=== PATIENT | male | born 1955 | race American Indian/Alaskan Native ===

== ENCOUNTER 2022-06-13 05:57 | Observation (INO) | payer MEDICARE ==
[2022-06-10 10:10] LABS: Hematocrit 41.2 % (35.5-45.6); Hemoglobin 13.8 gm/dl (11.8-15.2); Mean Corpuscular HGB Conc 34 % (32-34); Mean Corpuscular Volume 88 fl (84-94); Platelet Count 217 K/mm3 (140-440); Red Blood Count 4.71 M/mm3 (3.65-5.03); Red Cell Distribution Width 13.1 % (13.2-15.2)
[2022-06-10 10:25] LABS: Alanine Aminotransferase 14 units/L (7-56); Albumin 4.1 g/dL (3.9-5); BUN/Creatinine Ratio 18; Blood Urea Nitrogen 14 mg/dL (9-20); Hemolysis Index 2
[2022-06-13] MEDS ORDERED: LACTATED RINGERS 1,000 ML ONE ×2 (06:25→10:03)
[2022-06-13] MEDS ORDERED: SODIUM CHLORIDE P/F VIAL 10 ML 10 ML ONE (07:17)
[2022-06-13] MEDS ORDERED: BUPIVACAINE/PF (0.5%) 5 MG/1 ML 30 ML VIAL INFILTRATI ONE (07:17)
[2022-06-13] MEDS ORDERED: NEOMY 40 MG/POLYMYXIN B 200,000 UNITS/ML (GU) AMPULE IR ONE ×2 (07:18→09:00)
[2022-06-13] MEDS ORDERED: rifAMPin 600 MG VIAL ONE (07:18)
[2022-06-13] MEDS ORDERED: SODIUM CHLORIDE 0.9% 500 ML 500 ML ONE (07:18)
--- NOTE | 2022-06-13 07:20 | Anesthesia Consultation ---
Anesthesia Consult and Med Hx Date of service: 06/13/22 - Airway Anesthetic Teeth Evaluation: Poor (some missing teeth in the bottom), Caps (#27 garcia cap), Dentures (upper) ROM Head & Neck: Adequate Mental/Hyoid Distance: Adequate Mallampati Class: Class II Intubation Access Assessment: Probably Good - Pre-Operative Health Status ASA Pre-Surgery Classification: ASA2 Proposed Anesthetic Plan: General - Central Nervous System Hx Psychiatric Problems: No - Endocrine Hx Non-Insulin Dependent Diabetes: No (no meds, BS elevated on DOS) - Other Systems Hx Cancer: No Hx Obesity: Yes (BMI 34.4)
[2022-06-13] MEDS ORDERED: INSULIN REGULAR, HUMAN 100 UNITS/1 ML IV NR (07:21)
--- NOTE | 2022-06-13 07:24 | Anesthesia Day of Surgery ---
Anesthesia Day of Surgery - Day of Surgery Patient Examined: Yes Patient H&P Reviewed: Yes Patient is NPO: Yes
[2022-06-13] MEDS ORDERED: VANCOMYCIN/NS 1 GM/250 ML 1 GM/250 ML BAG IV NR (07:39)
[2022-06-13] MEDS ORDERED: ONDANSETRON 4 MG/2 ML INJ ONE (07:49)
[2022-06-13] MEDS ORDERED: LIDOCAINE MPF (2%) 20 MG/1 ML VIAL 5 ML ONE (07:49)
[2022-06-13] MEDS ORDERED: HYDROmorphone 1 MG/1 ML INJ ONE (07:49)
[2022-06-13] MEDS ORDERED: propofoL 200 MG/20 ML VIAL IV ONE (07:50)
[2022-06-13] MEDS ORDERED: GABAPENTIN 500 MG/10 ML ORAL LIQD PO NR (08:00)
[2022-06-13] MEDS ORDERED: MIDAZOLAM 2 MG/2 ML INJ IV NR (08:00)
[2022-06-13] MEDS ORDERED: CELECOXIB 200 MG CAP PO NR (08:00)
[2022-06-13] MEDS ORDERED: LACTATED RINGERS 1,000 ML IV SCH (08:00)
[2022-06-13] MEDS ORDERED: GENTAMICIN/NS 80 MG/100 ML 100 ML IV ONE (08:00)
[2022-06-13] MEDS ORDERED: VANCOMYCIN 1,500 MG in SODIUM CHLORIDE 0.9% 500 ML 500 ML IV ONE (08:00)
[2022-06-13] MEDS ORDERED: FAMOTIDINE 20 MG/2 ML INJ IV NR (08:00)
[2022-06-13] MEDS ORDERED: ONDANSETRON 4 MG/2 ML INJ IV PRN ×3 (08:31→09:50)
[2022-06-13] MEDS ORDERED: ACETAMINOPHEN 325 MG TAB PO PRN ×3 (08:31→09:50)
[2022-06-13] MEDS ORDERED: rifAMPin 600 MG VIAL IV ONE (09:00)
[2022-06-13] MEDS ORDERED: SODIUM CHLORIDE 0.9% 500 ML IVPB IRRIGATION ONE (09:00)
[2022-06-13] MEDS ORDERED: SODIUM CHLORIDE 0.9% IRR 1,500 ML BOTTLE IR ONE (09:00)
[2022-06-13] MEDS ORDERED: SODIUM CHLORIDE 0.9% P/F 10 ML VIAL INFILTRATI ONE (09:00)
[2022-06-13] MEDS ORDERED: GENTAMICIN 40 MG/ML VIAL 2 ML IV ONE (09:00)
[2022-06-13] MEDS ORDERED: HYDROcodone/ACETAMINOPHEN 5-325 MG TAB PO PRN (09:30)
[2022-06-13] MEDS ORDERED: MORPHINE 4 MG/1 ML INJ IV PRN (09:30)
[2022-06-13] MEDS ORDERED: PHENYLEPHRINE/NS 1,000 MCG/10 ML SYRINGE (OR USE) IV ONE (09:41)
[2022-06-13] MEDS ORDERED: NALOXONE 0.4 MG/1 ML INJ IV PRN (09:50)
--- NOTE | 2022-06-13 09:50 | Short Stay Summary ---
Short Stay Documentation Date of service: 06/13/22 - History H&P: obtained from office - Allergies and Medications Current Medications: Allergies No Known Allergies Allergy (Unverified 06/08/22 17:15) Home Medications Medication Instructions Recorded Confirmed Last Taken Type No Known Home Medications [No 06/08/22 06/08/22 Unknown History Reported Home Medications] Active Medications Acetaminophen (Acetaminophen 325 Mg Tab) 650 mg PO Q4H PRN PRN Reason: Pain MILD(1-3)/Fever >100.5/MONTANEZ Hydrocodone Bitart/Acetaminophen (Hydrocodone/Acetaminophen 5-325 Mg Tab) 2 each PO Q6H PRN PRN Reason: Pain, Moderate (4-6) Celecoxib (Celecoxib 200 Mg Cap) 200 mg PO PREOP NR Stop: 06/13/22 13:00 Last Admin: 06/13/22 07:30 Dose: 200 mg Famotidine (Famotidine 20 Mg/2 Ml Inj) 20 mg IV PREOP NR Stop: 06/13/22 10:00 Last Admin: 06/13/22 07:30 Dose: 20 mg Gabapentin (Gabapentin 500 Mg/10 Ml Oral Liqd) 150 mg PO PREOP NR Stop: 06/13/22 10:00 Last Admin: 06/13/22 07:30 Dose: 150 mg Lactated Ringer's (Lactated Ringers) 1,000 mls @ 100 mls/hr IV DIRECT ALEX Last Admin: 06/13/22 06:35 Dose: 100 mls/hr Insulin Human Regular (Insulin Regular, Human 100 Units/1 Ml) 8 units IV ONCE NR Stop: 06/13/22 10:00 Last Admin: 06/13/22 07:30 Dose: 8 units Midazolam HCl (Midazolam 2 Mg/2 Ml Inj) 2 mg IV PREOP NR Stop: 06/13/22 23:59 Last Admin: 06/13/22 08:05 Dose: 2 mg Morphine Sulfate (Morphine 4 Mg/1 Ml Inj) 4 mg IV Q4H PRN PRN Reason: Pain , Severe (7-10) Ondansetron HCl (Ondansetron 4 Mg/2 Ml Inj) 4 mg IV Q8H PRN PRN Reason: Nausea And Vomiting Sodium Chloride (Sodium Chloride 0.9% 10 Ml Flush Syringe) 10 ml IV BID ALEX Sodium Chloride (Sodium Chloride 0.9% 10 Ml Flush Syringe) 10 ml IV PRN PRN PRN Reason: LINE FLUSH Stop: 06/18/22 08:32 - Brief post op/procedure progress note Date of procedure: 06/13/22 Pre-op diagnosis: impotence Post-op diagnosis: other (redundant scrotal skin) Procedure: ipp, scrotaplasty Anesthesia: GETA Surgeon: GENE ANAYA Condition: stable - Hospital course Hospital course: pt has scripts DC [facility] / DC HOME PT HAS SCRIPTS - Disposition Condition at discharge: Stable Disposition: 01 HOME / SELF CARE / HOMELESS Short Stay Discharge Plan Follow up with: PRIMARY CARE, [Primary Care Provider] - 7 Days Prescriptions: metFORMIN [Glucophage] 500 mg PO BID #[id number]
--- NOTE | 2022-06-13 10:41 | Post Anesthesia Evaluation ---
- Post Anesthesia Evaluation Patient Participated: Yes Airway Patent: Yes Stable Respiratory Function: Yes Nausea/Vomiting: No Temp > 96.8F: Yes Pain Manageable: Yes Adequeate Hydration: Yes Anesthesia Complications: No
--- NOTE | 2022-06-13 11:04 | Operative Report ---
DATE OF SURGERY: 06/13/2022 PREOPERATIVE DIAGNOSIS: Erectile dysfunction. POSTOPERATIVE DIAGNOSIS: Erectile dysfunction. PROCEDURE: Insertion of inflatable penile prosthesis (Coloplast Titan 24 cm), injection of corporal body with pharmacologic agent and scrotoplasty. SURGEON: Fredis Marin MD MELTING OPERATOR: Lina Tucker. ANESTHESIA: General. ESTIMATED BLOOD LOSS: Minimal. FLUIDS: Crystalloid. COMPLICATIONS: No complications. INDICATIONS: This is a 66-year-old gentleman seen in the office with refractory erectile dysfunction. He has tried medical management without success. We discussed in details treatment options, the patient agreed to proceed with surgical intervention. Risks, benefits, complications were explained. The patient agreed to proceed. Also, of note, preoperatively, his blood sugar was in the 300 range. The patient denies history of diabetes. Discussed with anesthesia. They agreed to proceed with surgical intervention and we will get a hospitalist to assist with management and we will follow up with his primary care (Dr. Justine Peacock). DESCRIPTION OF PROCEDURE: The patient was taken to the operative suite, placed in a supine position. After adequate general anesthesia, he was prepped and draped in a sterile fashion. Kinsey catheter was placed on the operative field. Then, 60 mL of 0.25% Marcaine was injected into the corporal body. No curvature or plaque could be appreciated. Transscrotal incision was made with the Bovie. Sharp dissection was taken down to the corporal bodies. Plastic stays were used for exposure. 2-0 Vicryl was placed in the corporal bodies, stay. Corporotomies were made bilaterally. Gentle dilation of the corporal bodies was performed. Total length for measurement 24 cm; therefore, a 24 cm Coloplast Titan device was prepped, 125 mL reservoir was prepped, placed in the retropubic space via the right external ring, 125 mL saline was inserted without difficulty. Copious irrigation was performed. Adequate hemostasis was achieved. The cylinders were prepped, placed in the corporal bodies, stay of the Lee needle. Corporotomies were closed with 2-0 Vicryl in a running fashion. The pump was separate and it was therefore connected to the reservoir and cylinders with the aid of the quick click connection system. Insufflation of the device revealed an excellent cosmetic result. The pump was placed in the dependent portion of the scrotum. Pursestring suture using 2-0 Vicryl was used to secure it in the dependent portion. Dartos layer was closed with 2-0 Vicryl in a running fashion. Redundant scrotal skin was excised and then the scrotal skin was closed with a 2-0 chromic in interrupted fashion. Collodion was placed as well as a mummy wrap. The patient tolerated the procedure well and was extubated and taken to recovery room. He will be observed overnight. He will go home on Bactrim and [place]. TID: [id number] RECEIPT: [id number] WENDY/CHARISSE
[2022-06-13] MEDS: SODIUM CHLORIDE 0.45% 1000 ML 1,000 ML IV SCH (14:10)
[2022-06-13] MEDS: ceFAZolin/NS 1 GM/50 ML 1 GM/50 ML BAG IV SCH ×2 (14:10→21:31)
[2022-06-13] MEDS: MORPHINE 4 MG/1 ML INJ IV PRN ×2 (15:58→21:30)
--- NOTE | 2022-06-13 16:07 | History and Physical Report ---
History of Present Illness Date of examination: 06/13/22 Date of admission: 06/13/22 08:35 Chief complaint: s/p penile prosthesis History of present illness: This is a 66 y/o male with h/o DM, HTN who is s/p penile prosthesis today now being admitted for observation o/n. Patient denies any new coplaint and tolerated procedure well. Past medical History: h/o DM, HTN Past surgical History: s/p penile prosthesis today Social History: Lives with family, denies any smoking, drinking and elicit drug abuse. Family History: Significant for DM/HTN Review of System: Constitutional: no fever, no chills, no weight loss Ears, eyes, nose, mouth and throat: no nasal congestion, no nasal discharge, no sinus pressure, no vision change, no red eye. Neck: No neck pain or rigidity. Cardiovascular: No chest pain, no orthopnea, no palpitations, no leg swelling Respiratory: No shortness of breath, no cough, no congestion, no wheezing Gastrointestinal: no abdominal pain, no nausea, no vomiting Genitourinary : no dysuria, no hematuria Musculoskeletal: no joint swelling or muscle ache Integumentary: no rash, no pruritis Neurological: no parathesias, no numbness, no tingling Endocrine: no cold or heat intolerance, no polyuria or polydipsia Hematologic/Lymphatic: no easy bruising, no easy bleeding, no gland swelling Allergic/Immunologic: no urticaria, no angioedema. Medications and Allergies Allergies Allergy/AdvReac Type Severity Reaction Status Date / Time No Known Allergies Allergy Unverified 06/08/22 17:15 Home Medications Medication Instructions Recorded Confirmed Last Taken Type No Known Home Medications [No 06/08/22 06/08/22 Unknown History Reported Home Medications] Active Meds: Active Medications Acetaminophen (Acetaminophen 325 Mg Tab) 650 mg PO Q4H PRN PRN Reason: Pain MILD(1-3)/Fever >100.5/MONTANEZ Hydrocodone Bitart/Acetaminophen (Hydrocodone/Acetaminophen 5-325 Mg Tab) 2 each PO Q6H PRN PRN Reason: Pain, Moderate (4-6) Sodium Chloride (Nacl 0.45% 1000 Ml) 1,000 mls @ 100 mls/hr IV DIRECT ALEX Last Admin: 06/13/22 14:10 Dose: 100 mls/hr Cefazolin Sodium (Ancef/Ns 1 Gm/50 Ml) 1 gm in 50 mls @ 100 mls/hr IV Q8H [facility]; Protocol Last Admin: 06/13/22 14:10 Dose: 100 mls/hr Midazolam HCl (Midazolam 2 Mg/2 Ml Inj) 2 mg IV PREOP NR Stop: 06/13/22 23:59 Last Admin: 06/13/22 08:05 Dose: 2 mg Morphine Sulfate (Morphine 4 Mg/1 Ml Inj) 4 mg IV Q4H PRN PRN Reason: Pain , Severe (7-10) Last Admin: 06/13/22 15:58 Dose: 4 mg Naloxone HCl (Naloxone 0.4 Mg/1 Ml Inj) 0.1 mg IV Q2MIN PRN PRN Reason: Res Rate </= 8 or 02 SAT < 92% Ondansetron HCl (Ondansetron 4 Mg/2 Ml Inj) 4 mg IV Q8H PRN PRN Reason: Nausea And Vomiting Sodium Chloride (Sodium Chloride 0.9% 10 Ml Flush Syringe) 10 ml IV BID [facility] Last Admin: 06/13/22 13:53 Dose: 10 ml Sodium Chloride (Sodium Chloride 0.9% 10 Ml Flush Syringe) 10 ml IV PRN PRN PRN Reason: LINE FLUSH Exam - Physical Exam Narrative exam: GENERAL: well-developed and well-nourished AAM lying on bed appeared to be in no discomfort. HEENT: Normocephalic. Atraumatic. No conjunctival congestion or icterus. Patient has moist mucous membranes. NECK: Supple. Trachea midline. CHEST/LUNGS: Clear to auscultated bilaterally, breathing nonlabored. No wheezes crackles or rhonchi. HEART/CARDIOVASCULAR: Regular in rate and rhythm. S1 and S2 positive. ABDOMEN: Abdomen is soft, nontender. Patient has normal bowel sounds. SKIN: There is no rash. Warm and dry. NEURO: No focal motor deficit. Follows command. MUSCULOSKELETAL: No joint effusion or tenderness. EXTRIMITY: No edema, no cyanosis or clubbing. PSYCH: Cooperative. - Constitutional Vitals: Temp Pulse Resp BP Pulse Ox 97.6 F 70 18 129/80 97 06/13/22 11:27 06/13/22 11:27 06/13/22 15:58 06/13/22 11:27 06/13/22 11:27 Results - Labs CBC & Chem 7: 06/10/22 09:50 06/10/22 09:50 Labs: Abnormal lab results 06/13/22 06/13/22 06/13/22 Range/Units 06:34 07:56 10:16 POC Glucose 332 H 265 H 218 H (70-105) mg/dL Assessment and Plan -- S/p penile prosthesis -- Diabetes mellitus type 2 -- Hypertension -- Obesity Postop care per urologist Resume cardiac/diabetic diet Resume home meds Pain meds as needed IV hydration, supportive care, monitor vitals DVT prophylaxis with Lovenox Full CODE STATUS
[2022-06-14] MEDS: ceFAZolin/NS 1 GM/50 ML 1 GM/50 ML BAG IV SCH ×2 (05:47→15:09)
[2022-06-14] MEDS: SODIUM CHLORIDE 0.45% 1000 ML 1,000 ML IV SCH (05:52)
--- NOTE | 2022-06-14 12:00 | Discharge Summary ---
Providers - Providers Date of Admission: 06/13/22 08:35 Date of discharge: 06/14/22 Attending physician: GENE ANAYA 06/13/22 09:50 Consult to Physician [CONS] Routine Comment: Consulting Provider: KOKO JUNG Physician Instructions: Reason For Exam: medical mgmt--- HTN, NEW ONSET DIABETES 06/13/22 09:55 Consult to Dietitian/Nutrition [CONS] Routine Physician Instructions: Reason For Exam: NEW ONSET DIABETES Reason for Consult: Diet education Primary care physician: INSTRUMENT OPERATOR Hospitalization Condition: Stable Disposition: 01 HOME / SELF CARE / HOMELESS - Discharge Diagnoses (1) Diabetes mellitus Status: Acute (2) Obesity (BMI 30.0-34.9) Status: Acute Core Measure Documentation - Palliative Care Palliative Care/ Comfort Measures: Not Applicable - Core Measures Any of the following diagnoses?: none Exam - Constitutional Vitals: Temp Pulse Resp BP Pulse Ox 98.3 F 87 18 145/88 98 06/13/22 15:46 06/13/22 15:46 06/13/22 22:00 06/13/22 15:46 06/14/22 10:00 Plan Activity: advance as tolerated Follow up with: SABRINA DAUGHERTY MD [Primary Care Provider] - 7 Days
[2022-06-14 12:09] VITALS: BP 118/74
== END 2022-06-14 03:35 | disposition home or self-care (01) ==
LOC: OR 05:57 → 3A 08:35
PROVIDERS: ADMIT Urology; ATTEND Urology
DX: N52.01 Erectile dysfunction due to arterial insufficiency (principal); Z20.822 Contact with and (suspected) exposure to COVID-19; N52.9 Male erectile dysfunction, unspecified; I10 Essential (primary) hypertension; E11.9 Type 2 diabetes mellitus without complications; E66.9 Obesity, unspecified; Z68.34 Body mass index [BMI] 34.0-34.9, adult; Z79.899 Other long term (current) drug therapy; Z98.890 Other specified postprocedural states; Z79.4 Long term (current) use of insulin; Z79.84 Long term (current) use of oral hypoglycemic drugs
CPT/HCPCS: 36415; 54405; 55175; 80053; 82962; 83036; 85027; 88302; 96365; 96366; 96375; 96376; C1813; G0378; G0379; J0690; J1170; J1580; J2250; J2270; J2370; J2405; J2704; J3370; J3490; J7030; J7040; J7120; U0003; 88305; Q9967; J1815